=== PATIENT | female | born 1965 | race Hispanic/Latino ===

== ENCOUNTER 2021-10-16 13:23 | Emergency (ER) | payer OTHER ==
[~2021-10-16] VITALS: Ht 162.6 cm; Wt 70.3 kg
[2021-10-16] MEDS ORDERED: CYCLOBENZAPRINE HCL 10 MG TAB PO ONE (13:45)
[2021-10-16] MEDS ORDERED: HYDROCODONE/APAP 7.5MG-325MG 1 EA TAB PO PRN (13:45)
[2021-10-16] MEDS ORDERED: CYCLOBENZAPRINE HCL 10 MG TAB ONE (13:59)
[2021-10-16] MEDS ORDERED: IBUPROFEN600 MG PO (15:01)
[2021-10-16] MEDS ORDERED: METHOCARBAMOL750 MG PO (15:01)
== END 2021-10-16 15:30 | disposition home or self-care (01) ==
LOC: ER 13:34
DX: M54.2 Cervicalgia (principal); M54.50 Low back pain, unspecified; S80.02XA Contusion of left knee, initial encounter; S93.491A Sprain of other ligament of right ankle, initial encounter; W01.0XXA Fall on same level from slipping, tripping and stumbling without subsequent striking against object, initial encounter; Y93.02 Activity, running; Y92.488 Other paved roadways as the place of occurrence of the external cause
CPT/HCPCS: 72100; 72125; 99283